=== PATIENT | female | born 1950 | race Asian ===

== ENCOUNTER 2019-08-21 15:14 | Emergency (ER) | payer OTHER ==
[~2019-08-21] VITALS: Ht 160 cm; Wt 61.2 kg
[~2019-08-21 15:14] MED LIST: ALAVERT10 M2 PO; ATEN25TA21 PO; BAYER ASPIRIN E81 MG OR; BUDE1AER5 INH; DILTIAZEM240 M1 PO; FLUTICASONE0.005 % EX; GLIP10TA55 PO; INVOKANA100 MG OR; OMEP40CA PO; RANITIDINE 150150 MG PO; REMERON SOLTAB15 MG OR
[2019-08-21 16:46] LABS: PLATELET COUNT 178 K/uL (152-353)
[2019-08-21 16:53] LABS: POTASSIUM 3.2 mmol/L (3.6-5.2); SODIUM 138 mmol/L (136-145)
[2019-08-21 18:30] VITALS: BP 163/98; TEMP 97.8
== END 2019-08-21 18:30 | disposition home or self-care (01) ==
LOC: ED 15:14
PROVIDERS: Emergency Medicine
PROC: 2W3CX1Z Immobilization of Right Lower Arm using Splint (ICD-10-PCS; principal; 2019-08-21)
DX: S62.316A Displaced fracture of base of fifth metacarpal bone, right hand, initial encounter for closed fracture (principal); E11.9 Type 2 diabetes mellitus without complications; I10 Essential (primary) hypertension; Z91.19 Patient's noncompliance with other medical treatment and regimen; F17.210 Nicotine dependence, cigarettes, uncomplicated; W01.0XXA Fall on same level from slipping, tripping and stumbling without subsequent striking against object, initial encounter; Y92.89 Other specified places as the place of occurrence of the external cause
CPT/HCPCS: 80053; 83735; 84484; 85027; 90471; 90715; 93005; 99283

== ENCOUNTER 2019-09-30 17:51 | Emergency (ER) | payer OTHER ==
[~2019-09-30] VITALS: Ht 160 cm; Wt 61.2 kg
[2019-09-30 19:06] LABS: PLATELET COUNT 226 K/uL (152-353)
[2019-09-30 20:18] LABS: POTASSIUM 4.1 mmol/L (3.6-5.2)
[2019-09-30 21:21] VITALS: BP 175/97; TEMP 98.1
== END 2019-09-30 21:22 | disposition home or self-care (01) ==
LOC: ED 17:51
PROVIDERS: Family Medicine
DX: I16.0 Hypertensive urgency (principal); R82.90 Unspecified abnormal findings in urine
CPT/HCPCS: 36415; 80053; 81000; 85027; 87086; 87088; 96374; 99283; 99284; J0360

== ENCOUNTER 2019-10-13 08:16 | Outpatient (CLI) | payer OTHER | END 2019-10-13 19:03 | disposition home or self-care (01) | LOC: MAMMO 08:16 | DX: Z12.31 Encounter for screening mammogram for malignant neoplasm of breast (principal) ==

== ENCOUNTER 2020-01-23 09:20 | Outpatient (CLI) | payer OTHER | END 2020-01-23 23:05 | disposition home or self-care (01) | LOC: RAD 09:20 | DX: S69.81XD Other specified injuries of right wrist, hand and finger(s), subsequent encounter (principal) ==

== ENCOUNTER 2020-03-25 08:09 | Outpatient (CLI) | payer OTHER | END 2020-03-25 14:13 | disposition home or self-care (01) | LOC: RAD 08:09 | PROVIDERS: ATTEND Nurse Practitioner Family | DX: M54.17 Radiculopathy, lumbosacral region (principal); S62.511D Displaced fracture of proximal phalanx of right thumb, subsequent encounter for fracture with routine healing ==

== ENCOUNTER 2020-04-15 14:57 | Outpatient (CLI) | payer OTHER | END 2020-04-15 21:58 | disposition home or self-care (01) | LOC: RAD 14:57 | DX: Z13.820 Encounter for screening for osteoporosis (principal); N95.8 Other specified menopausal and perimenopausal disorders ==

== ENCOUNTER 2020-09-17 09:48 | Emergency (ER) | payer OTHER ==
[~2020-09-17] VITALS: Ht 167.6 cm; Wt 57.2 kg
[2020-09-17 10:00] VITALS: TEMP 97.5
[2020-09-17 12:18] LABS: PLATELET COUNT 195 K/uL (152-353)
[2020-09-17 12:44] LABS: PARTIAL THROMBOPLASTIN TIME 22.9 SECONDS (24.5-33.6)
[2020-09-17 13:43] VITALS: BP 148/93
== END 2020-09-17 14:54 | disposition short-term general hospital (02) ==
LOC: ED 09:48
PROVIDERS: Family Medicine
PROC: 0T9B70Z Drainage of Bladder with Drainage Device, Via Natural or Artificial Opening (ICD-10-PCS; principal; 2020-09-17)
DX: S72.141A Displaced intertrochanteric fracture of right femur, initial encounter for closed fracture (principal); Z03.818 Encounter for observation for suspected exposure to other biological agents ruled out; W18.39XA Other fall on same level, initial encounter; Y92.098 Other place in other non-institutional residence as the place of occurrence of the external cause
CPT/HCPCS: 36415; 51702; 80053; 81000; 85027; 85610; 85730; 87635; 96372; 96374; 96375; 96376; 99284; J1885; J2270; J2405; U0003

== ENCOUNTER 2020-12-03 11:16 | Outpatient (CLI) | payer OTHER ==
[2020-12-03 11:33] LABS: PLATELET COUNT 373 K/uL (152-353)
[2020-12-03 13:23] LABS: POTASSIUM 3.9 mmol/L (3.6-5.2)
== END 2020-12-03 19:26 | disposition home or self-care (01) ==
LOC: LAB 11:16
PROVIDERS: ATTEND Internal Medicine
DX: S72.001D Fracture of unspecified part of neck of right femur, subsequent encounter for closed fracture with routine healing (principal); E11.40 Type 2 diabetes mellitus with diabetic neuropathy, unspecified; D50.8 Other iron deficiency anemias; I10 Essential (primary) hypertension; E46 Unspecified protein-calorie malnutrition; E53.8 Deficiency of other specified B group vitamins
CPT/HCPCS: 80053; 82607; 82728; 83036; 83540; 83550; 85027

== ENCOUNTER 2020-12-21 14:25 | Emergency (ER) | payer OTHER ==
[~2020-12-21] VITALS: Ht 167.6 cm; Wt 65.8 kg
[2020-12-21 15:15] LABS: PLATELET COUNT 296 K/uL (152-353)
[2020-12-21 15:26] LABS: POTASSIUM 5.2 mmol/L (3.6-5.2)
[2020-12-21 16:45] VITALS: BP 97/53; TEMP 97.2
== END 2020-12-21 16:45 | disposition home or self-care (01) ==
LOC: ED 14:25
PROVIDERS: Family Medicine
DX: N39.0 Urinary tract infection, site not specified (principal); R53.83 Other fatigue
CPT/HCPCS: 36415; 80053; 81000; 85027; 87077; 87086; 87088; 87186; 96365; 96375; 99284; J0696; J1885

== ENCOUNTER 2020-12-26 11:55 | Emergency (ER) | payer OTHER ==
[~2020-12-26] VITALS: Ht 167.6 cm; Wt 65.8 kg
[2020-12-26 12:45] LABS: PLATELET COUNT 316 K/uL (152-353)
[2020-12-26 12:59] LABS: POTASSIUM 5.2 mmol/L (3.6-5.2); SODIUM 139 mmol/L (136-145)
[2020-12-26 16:21] VITALS: BP 116/68; TEMP 97.8
== END 2020-12-26 16:21 | disposition short-term general hospital (02) ==
LOC: ED 11:55
PROVIDERS: Hospitalist
PROC: 0T9B70Z Drainage of Bladder with Drainage Device, Via Natural or Artificial Opening (ICD-10-PCS; principal; 2020-12-26)
PROC: 0D9670Z Drainage of Stomach with Drainage Device, Via Natural or Artificial Opening (ICD-10-PCS; 2020-12-26)
DX: K56.699 Other intestinal obstruction unspecified as to partial versus complete obstruction (principal); K43.6 Other and unspecified ventral hernia with obstruction, without gangrene; R11.2 Nausea with vomiting, unspecified; N17.8 Other acute kidney failure; Z03.818 Encounter for observation for suspected exposure to other biological agents ruled out
CPT/HCPCS: 36415; 43754; 51702; 80053; 81000; 82150; 83605; 83690; 84484; 85027; 87040; 87635; 93005; 96360; 96365; 96366; 96375; 99284; J1885; J1956; J2270; J2405; J3370; U0003